=== PATIENT | female | born 1965 | race Caucasian/White ===

== ENCOUNTER 2019-05-31 13:08 | Emergency (ER) | payer MEDICAID, OTHER ==
[~2019-05-31] VITALS: Ht 157.5 cm; Wt 51.7 kg
--- NOTE | 2019-05-31 14:42 | NUR ---
VO FROM MD BELL, NO NEED FOR IV START.
[2019-05-31 14:54] LABS: BASOPHILS % (AUTO) 0.2 % (0-1); EOSINOPHILS # (AUTO) 0.1 X10'3 (0-0.9); EOSINOPHILS % (AUTO) 0.4 % (0-6); HEMATOCRIT 41.4 % (35.0-45.0); HEMOGLOBIN 14.4 g/dl (12.0-16.0); LYMPHOCYTES # (AUTO) 1.1 X10'3 (1.1-4.8); LYMPHOCYTES % (AUTO) 7.7 % (21-51); MEAN CORPUSCULAR HEMOGLOBIN 31.6 PG (27.0-31.0); MEAN CORPUSCULAR HGB CONC 34.7 g/dL (33.0-36.5); MEAN CORPUSCULAR VOLUME 91.1 FL (78-98); MEAN PLATELET VOLUME 8.6 FL (7.4-10.4); MONOCYTES # (AUTO) 0.7 X10'3 (0-0.9); MONOCYTES % (AUTO) 4.9 % (2-12); NEUTROPHILS # (AUTO) 12.9 X10'3 (1.8-7.7); NEUTROPHILS % (AUTO) 86.8 % (42-75); PLATELET COUNT 278 X10'3 (140-440); RED BLOOD COUNT 4.55 X10'6 (4.20-5.60); RED CELL DISTRIBUTION WIDTH 13.2 % (11.5-14.5); WHITE BLOOD COUNT 14.8 X10'3 (4.5-11.0)
[2019-05-31 15:17] LABS: ALANINE AMINOTRANSFERASE 26 U/L (12-78); ALBUMIN 4.4 G/DL (3.4-5.0); ALBUMIN/GLOBULIN RATIO 1.4 (1.1-1.5); ALKALINE PHOSPHATASE 83 IU/L (46-116); ANION GAP 7 (8-16); ASPARTATE AMINO TRANSFERASE 15 U/L (10-37); BILIRUBIN,TOTAL 0.5 MG/DL (0.1-1.0); BLOOD UREA NITROGEN 13 MG/DL (7-18); BUN/CREATININE RATIO 16.7 (6.6-38.0); CALCIUM 8.9 MG/DL (8.5-10.1); CHLORIDE 105 MMOL/L (99-107); CREATININE 0.78 MG/DL (0.40-0.90); GLUCOSE 83 MG/DL (70-104); POTASSIUM 4.1 MMOL/L (3.5-5.1); SODIUM 141 MMOL/L (135-145); TOTAL CARBON DIOXIDE 29.1 MMOL/L (24-32); TOTAL PROTEIN 7.6 G/DL (6.4-8.2); eGFR 77 ML/MIN
[2019-05-31 16:27] VITALS: BP 135/92
== END 2019-05-31 16:33 | disposition home or self-care (01) ==
LOC: ER 13:09
DX: D72.829 Elevated white blood cell count, unspecified (principal); F41.9 Anxiety disorder, unspecified; Z90.710 Acquired absence of both cervix and uterus; Z88.0 Allergy status to penicillin; Z88.2 Allergy status to sulfonamides
CPT/HCPCS: 36415; 71045; 80053; 84484; 85025; 93005; 99284

== ENCOUNTER 2019-06-24 07:41 | Emergency (ER) | payer MEDICAID, OTHER ==
[~2019-06-24] VITALS: Ht 157.5 cm; Wt 50.0 kg
--- NOTE | 2019-06-24 08:27 | NUR ---
Patient currently talking on phone w/o any distress. VS stable with a HR 75.
[2019-06-24 08:32] LABS: BASOPHILS # (AUTO) 0.1 X10'3 (0-0.2); BASOPHILS % (AUTO) 1.1 % (0-1); EOSINOPHILS # (AUTO) 0.1 X10'3 (0-0.9); EOSINOPHILS % (AUTO) 1.2 % (0-6); HEMATOCRIT 44.3 % (35.0-45.0); HEMOGLOBIN 15.4 g/dl (12.0-16.0); LYMPHOCYTES % (AUTO) 32.9 % (21-51); MEAN CORPUSCULAR HEMOGLOBIN 31.3 PG (27.0-31.0); MEAN CORPUSCULAR HGB CONC 34.7 g/dL (33.0-36.5); MEAN CORPUSCULAR VOLUME 90.3 FL (78-98); MEAN PLATELET VOLUME 8.5 FL (7.4-10.4); MONOCYTES # (AUTO) 0.3 X10'3 (0-0.9); MONOCYTES % (AUTO) 4.8 % (2-12); NEUTROPHILS # (AUTO) 3.6 X10'3 (1.8-7.7); PLATELET COUNT 295 X10'3 (140-440); RED BLOOD COUNT 4.91 X10'6 (4.20-5.60); RED CELL DISTRIBUTION WIDTH 12.9 % (11.5-14.5); WHITE BLOOD COUNT 5.9 X10'3 (4.5-11.0)
[2019-06-24] MEDS ORDERED: normal saline 1000ML IV soln IVB ONE (08:40)
[2019-06-24] MEDS ORDERED: metoclopramide 5 mg/ml inj IV ONE (08:40)
[2019-06-24] MEDS ORDERED: morphine 4 MG/ML inj SYRINge IV ONE (08:40)
[2019-06-24 08:50] LABS: ALANINE AMINOTRANSFERASE 21 U/L (12-78); ALBUMIN 4.5 G/DL (3.4-5.0); ALBUMIN/GLOBULIN RATIO 1.4 (1.1-1.5); ALKALINE PHOSPHATASE 78 IU/L (46-116); ANION GAP 10 (8-16); ASPARTATE AMINO TRANSFERASE 16 U/L (10-37); BILIRUBIN,TOTAL 0.9 MG/DL (0.1-1.0); BLOOD UREA NITROGEN 16 MG/DL (7-18); CALCIUM 9.9 MG/DL (8.5-10.1); CHLORIDE 105 MMOL/L (99-107); GLUCOSE 94 MG/DL (70-104); LIPASE 171 U/L (73-393); POTASSIUM 3.5 MMOL/L (3.5-5.1); SODIUM 141 MMOL/L (135-145); TOTAL CARBON DIOXIDE 25.9 MMOL/L (24-32); TOTAL PROTEIN 7.7 G/DL (6.4-8.2); eGFR 58 ML/MIN
--- NOTE | 2019-06-24 08:50 | NUR ---
Ultrasound at bedside.
[2019-06-24 09:35] LABS: COLOR,URINE STRAW (Yellow); GLUCOSE, URINE NEGATIVE (Neg); KETONES,URINE NEGATIVE (Neg); LEUKOCYTE ESTERASE ,URINE LARGE (Neg); NITRITES, URINE NEGATIVE (Neg); OCCULT BLOOD,URINE NEGATIVE (Neg); PROTEIN,URINE NEGATIVE (Neg); UROBILINOGEN,URINE 0.2 E.U/dL (0.2-1.0)
[2019-06-24 09:37] LABS: CLARITY,URINE SLIGHTLY CLOUDY (Clear); UA COLLECTION TYPE CLN CATCH MIDSTREAM
[2019-06-24 09:40] LABS: BACTERIA,URINE 1+ /HPF (Neg); MUCUS STRANDS NONE SEEN /LPF (Neg); RBC,URINE NONE SEEN /HPF (0-2); SQUAMOUS EPITHELIAL CELL,UR MODERATE /LPF (FEW); WBC CLUMPS,URINE FEW /HPF (NEGATIVE)
[2019-06-24 09:45] LABS: URINE HCG NEGATIVE (NEG)
[2019-06-24] MEDS ORDERED: IBUP-1984 PO (09:49)
[2019-06-24] MEDS ORDERED: NITR100C6 PO (09:49)
[2019-06-24] MEDS ORDERED: mag hydrox/Alum hydrox/simeth 30ml oral suspension PO ONE (10:15)
[2019-06-24 11:00] VITALS: BP 131/64
== END 2019-06-24 11:03 | disposition home or self-care (01) ==
LOC: ER 07:41
DX: N39.0 Urinary tract infection, site not specified (principal); R11.2 Nausea with vomiting, unspecified; R10.13 Epigastric pain; G89.29 Other chronic pain; I48.91 Unspecified atrial fibrillation; Z90.710 Acquired absence of both cervix and uterus; Z88.0 Allergy status to penicillin; Z88.2 Allergy status to sulfonamides
CPT/HCPCS: 36415; 76700; 80053; 81001; 81025; 83690; 85025; 87088; 93005; 96361; 96374; 96375; 99284; J2270; J2765; J7030

== ENCOUNTER 2019-12-13 08:12 | Emergency (ER) | payer MEDICAID, OTHER ==
[~2019-12-13] VITALS: Ht 157.5 cm; Wt 50.0 kg
[~2019-12-13 08:12] MED LIST: NITR100C6 PO
[2019-12-13] MEDS ORDERED: LIDOcaine 1% 30ml preserv. free vial SQ STA (09:28)
[2019-12-13] MEDS ORDERED: morphine 4 MG/ML inj SYRINge IM ONE (09:30)
[2019-12-13] MEDS ORDERED: LORazepam 1 MG tablet PO ONE (10:00)
[2019-12-13] MEDS ORDERED: ondansetron 4mg rapidly disintigrating tab PO ONE (11:20)
[2019-12-13] MEDS ORDERED: OXYC-145 PO (11:33)
[2019-12-13 12:12] VITALS: BP 152/82
[2019-12-13] MEDS ORDERED: LORA-269 PO (12:41)
[2019-12-13] MEDS ORDERED: CELE-193 PO (12:42)
== END 2019-12-13 12:51 | disposition home or self-care (01) ==
LOC: ER 08:12
DX: G89.29 Other chronic pain (principal); M54.2 Cervicalgia; F41.9 Anxiety disorder, unspecified; Z90.710 Acquired absence of both cervix and uterus; Z88.0 Allergy status to penicillin; Z88.2 Allergy status to sulfonamides; Z79.899 Other long term (current) drug therapy
CPT/HCPCS: 20552; 36415; 80346; 96372; 99284; J2270

== ENCOUNTER 2020-11-18 12:26 | Emergency (ER) | payer OTHER ==
[~2020-11-18] VITALS: Ht 157.5 cm; Wt 48.1 kg
[~2020-11-18 12:26] MED LIST changes: +LORA-269 PO; +OXYC-145 PO
[2020-11-18 12:43] VITALS: BP 144/89
[2020-11-18] MEDS ORDERED: HYDR28CR14 TOP (14:06)
== END 2020-11-18 14:59 | disposition home or self-care (01) ==
LOC: ER 12:26
DX: R21 Rash and other nonspecific skin eruption (principal); G89.29 Other chronic pain; F41.9 Anxiety disorder, unspecified; Z90.710 Acquired absence of both cervix and uterus; Z88.0 Allergy status to penicillin; Z88.2 Allergy status to sulfonamides; Z79.899 Other long term (current) drug therapy
CPT/HCPCS: 99282; 99283

== ENCOUNTER 2023-10-19 13:12 | Emergency (ER) | payer MEDICAID ==
[~2023-10-19] VITALS: Ht 157.5 cm; Wt 47.5 kg
[~2023-10-19 13:12] MED LIST changes: +HYDR28CR14 TOP
[2023-10-19 13:39] VITALS: BP 112/69; PULSE 84; RESP 16; TEMP 98.9; O2SAT 100
== END 2023-10-19 14:19 | disposition home or self-care (01) ==
LOC: ER 13:13
DX: H61.22 Impacted cerumen, left ear (principal); Z88.0 Allergy status to penicillin; Z88.2 Allergy status to sulfonamides; Z79.899 Other long term (current) drug therapy; Z90.710 Acquired absence of both cervix and uterus
CPT/HCPCS: 99283

== ENCOUNTER 2025-04-06 11:16 | Emergency (ER) | payer MEDICAID ==
[~2025-04-06] VITALS: Ht 157.5 cm; Wt 55.0 kg
[2025-04-06 11:26] VITALS: TEMP 98.1
[2025-04-06] MEDS ORDERED: CEPH-585 PO (12:51)
[2025-04-06] MEDS ORDERED: FLUC150T22 PO (12:55)
--- NOTE | 2025-04-06 12:55 | Physician Documentation ---
History of Present Illness ~ Chief Complaint: Bite-insect Stated Complaint: SPIDER BITE Time Seen by MD: 12:31 OK to notify your PCP?: Yes Primary Medical Doctor: valorie sorenson Source: patient Mode of Arrival: POV Exam Limitations: no limitations HPI 59-year-old female presents with edema, redness and pain to right upper arm. She reports that she was cleaning out a motor home and was wearing long sleeves and felt something bit her but is unsure what it was. She believes it may have been a spider bite. She did take 25 mg of Benadryl at 10:00 a.m.. She denies any fevers, chills, nausea, vomiting, diarrhea. Tetanus within 5 years?: No Medication Reconciliation Allergies: Coded Allergies: Penicillins (Unverified Allergy, Unknown, 04/06/25) Sulfa (Sulfonamide Antibiotics) (Unverified Allergy, Unknown, 04/06/25) Scheduled Cephalexin*Monohydrate* (Keflex*), 1 CAP PO Q6H Fluconazole (Diflucan), 1 TAB PO ONCE Hydrocortisone (hydrocortisone 1% cream), 1 APPLIC TOP Q12H Lorazepam (Ativan), 1 TAB PO Q8H Nitrofurantoin Monohyd/M-Cryst (Macrobid 100 mg Capsule), 1 CAP PO Q12H Scheduled PRN Oxycodone HCl/Acetaminophen (Percocet 5-325 mg Tablet), 1 TAB PO Q12H PRN PRN for pain Past Medical History Past Medical History: No Pertinent History, Chronic Pain, Chronic Back Pain, Anxiety Past Surgical History: hysterectomy Alcohol Use: None Drug Use: none Lives In: Home Occupation: employed Review of Systems All Other Systems at this time: Reviewed and Negative Physical Exam Vital Signs: RN Vital Signs have been reviewed: Yes, Temperature: 98.1, Heart Rate: 78, Respiratory Rate: 16, BP: 130/82, Pulse Oximetry: 100, Weight: 55.000 Oxygen Flow Rate: 0 Pulse Oximetry Reflects: adequate oxygenation Physical Exam General: Alert, no distress. HEENT: No injection, moist mucous membranes. Neck: Full range of motion. Respiratory: No respiratory distress, equal chest rise and fall. Chest: No accessory muscle use. Cardiovascular: Regular rate and rhythm. Gastrointestinal: Nondistended. Extremities: Normal range of motion, no deformity. Neurologic: Oriented x4. Psychiatric: Normal mood and affect. Skin: Warm, erythematous right inner upper arm with induration of the tissues and surrounding erythema that has spread down into her elbow. Tenderness to palpation. No draining or wound noted. Progress Results/Orders Reviewed/noted all lab results: Yes Results/Orders Vital Signs 04/06/25 04/06/25 11:26 13:22 Temp 98.1 Pulse 78 79 Resp 16 16 B/P (MAP) 130/82 112/82 Pulse Ox 100 98 O2 Flow Rate 0 Medical Decision Making Additional information obtaine: old records Findings She appears to have cellulitis to her right upper arm on physical exam. She reports that she has taken Keflex in the past without issue other than every time she takes it, she gets a yeast infection. She is requesting medication for her upcoming yeast infection after this course of antibiotics. I agree to give her the 1 time dose of Diflucan she can use should she show symptoms of a yeast infection after the course of antibiotics. We discussed return instructions as well as follow up instructions. I did draw an outline of the redness so that way we can see if it is spreading outside of the line. She has been having any systemic or sepsis symptoms. Differential Dx:Considerations: Include: Abrasion, Allergic reaction, Cellulitis, Contusion, Insect envenomation, Punture wound, Retained foreign body Additional Comment Abscess, sepsis. Departure Disposition: 01 HOME / SELF CARE / HOMELESS Impression: Primary Impression: Cellulitis Discharge Instructions: Cellulitis, Adult Additional Instructions: You can do warm compresses to the site to help with swelling. Keep arm elevated but the level of the heart to help reduce swelling. You can continue to use Benadryl, hydrocortisone cream [id number] to help with the itching. Please refrain from itching this so you do not cause a secondary infection or abscess. We have marked with pen and if it spreads outside of the line please return immediately. Return back here for any new or worsening symptoms. Follow up with her primary care provider in the next week. Take all antibiotics as prescribed and finish the course. Take the Diflucan when she has finished the antibiotic course if needed for vaginal yeast infection. Referrals: NO PRIMARY CARE PROVIDER (PCP) Prescriptions Fluconazole (Diflucan) 150 Mg Tablet 1 TAB PO ONCE for 1 Day, #1 TAB Prov: JESSICA NORWOOD [employer] 04/06/25 Cephalexin*Monohydrate* (Keflex*) 500 Mg Capsule 1 CAP PO Q6H for 10 Days, #40 CAP Prov: JESSICA NORWOOD 04/06/25 Education Educated: Patient Educated regarding: diagnosis, treatment, prognosis, need for follow up Additional Comment Medical Screen Exam This patient recieved a medical screening examination. After reviewing the individual's medical complaints with presenting symptoms and performing an appropriate physical examination, it was determined that no immediate life- threatening emergency medical condition is present. This individual is also not a women having contractions. Signature Scribe Signature: . Attestation: Scribed for Jessica Norwoodp by Jessica Gomez NP . 04/06/25 15:39 Parts of this note were created using [email or web address] voice recognition software program. While efforts were made to correct any mistakes made by this voice recognition software program, nonsensical phrases may remain in this note. In addition, there may be errors and syntax, grammar, content and spelling. JESSICA NORWOOD Apr 06, 2025 12:55
[2025-04-06 13:22] VITALS: BP 112/82; PULSE 79; RESP 16; O2SAT 98
== END 2025-04-06 13:23 | disposition home or self-care (01) ==
LOC: ER 11:17
DX: L03.113 Cellulitis of right upper limb (principal); G89.29 Other chronic pain; F41.9 Anxiety disorder, unspecified; Z88.0 Allergy status to penicillin; Z88.2 Allergy status to sulfonamides; Z90.710 Acquired absence of both cervix and uterus; Z79.899 Other long term (current) drug therapy
CPT/HCPCS: 99283